=== PATIENT | female | born 1930 | race Caucasian/White ===

== ENCOUNTER 2018-06-05 22:10 | Inpatient (IN) ==
[2018-06-05] MEDS ORDERED: Vancomycin Inj 1,000 MG in Sodium Chlor 0.9% Inj 250 ML IV.SIG STA (22:16)
[2018-06-05] MEDS ORDERED: Acetaminophen 325 MG Tablet PO ONE (22:16)
[2018-06-05] MEDS ORDERED: Azithromycin Inj 500 MG in Sodium Chlor 0.9% Inj 250 ML IV.SIG STA (22:16)
[2018-06-05] MEDS ORDERED: Piperacil/Tazo 4.5 GM Premix 4.5 GM/100 ML BAG IV.SIG STA (22:16)
[2018-06-05] MEDS ORDERED: Sod Chloride 0.9% Inj 800 ML IV.SIG SCH (22:30)
[2018-06-05] MEDS: Sod Chloride 0.9% Inj 1,000 ML IV.SIG SCH (22:32)
--- NOTE | 2018-06-05 22:37 | XR ---
EXAM DATE: 06/05/2018 10:17 PM EDT AGE/SEX: 87 years / Female INDICATIONS: Fever. Stemi alert. CLINICAL DATA: This is the patient's initial encounter. Patient reports that signs and symptoms have been present for 1 day and indicates a pain score of Nonresponsive. MEDICAL/SURGICAL HISTORY: Non-responsive. Non-responsive. COMPARISON: No prior exams available for comparison. FINDINGS: There is left basilar airspace disease and probable small left effusion and trace right pleural fluid . Stent overlies lower chest, presumably within the esophagus. No prior study for comparison. No pneu mothorax. Mild scoliosis. CONCLUSION: Left basilar airspace disease with pleural fluid. Presumed esophageal stent. Tortuous aorta. Trace ri ght pleural fluid. Electronically signed by: Eyad Mike MD 06/05/2018 10:36 PM EDT
--- NOTE | 2018-06-05 22:41 | ED ---
HPI General Chief Complaint: Respiratory Symptoms Stated Complaint: stemi alert/evac Time Seen by Provider: 06/05/18 22:16 Source: patient and EMS Mode of arrival: EMS Limitations: no limitations History of Present Illness Patient is an 87-year-old female who presents from the assisted with complaint of shortness of breath, cough, nausea. EMS reports that her pulse ox was in the 80s and she has since received 1 DuoNeb and 1 nebulized albuterol after which she had improving breath sounds and pulse ox. They gave her 125 mg Solu-Medrol. They obtained a 12-lead EKG and were concerned about the inferior leads and V4 and called in a STEMI alert. Patient denies chest pain at this time and is mostly complaining of shortness of breath and her cough. MD Complaint: Reports shortness of breath and cough Onset (ago): unknown Context: Reports recent illness Severity: moderate Consistency/Duration: constant Relieving factors: oxygen and bronchodilators Exacerbating factors: nothing Associated symptoms: Reports cough Treatment prior to arrival: Reports oxygen and bronchodilator Related Data Home Medications Medication Instructions Recorded Confirmed amiodarone 200 mg PO DAILY 06/05/18 06/05/18 aspirin [Aspir-81] 81 mg PO DAILY 06/05/18 06/05/18 calcium carbonate-vitamin D3 1 tab PO DAILY 06/05/18 06/05/18 [Calcium 500 + D] ipratropium-albuterol 3 ml INHALATION Q6-8H PRN 06/05/18 06/05/18 levothyroxine 88 mcg PO DAILY 06/05/18 06/05/18 melatonin 3 mg PO HS PRN 06/05/18 06/05/18 methenamine mandelate 1 g PO BID 06/05/18 06/05/18 metoprolol succinate 25 mg PO DAILY 06/05/18 06/05/18 montelukast 10 mg PO QPM 06/05/18 06/05/18 morphine 5 mg INHALATION Q4-6H PRN 06/05/18 06/05/18 ondansetron 4 mg PO Q6-8H PRN 06/05/18 06/05/18 phenazopyridine 100 mg PO TID PRN 06/05/18 06/05/18 pravastatin 20 mg PO HS 06/05/18 06/05/18 ranitidine HCl [Acid Jewelry Facer 75 mg PO BID PRN 06/05/18 06/05/18 (ranitidine)] tamsulosin 0.4 mg PO BID 06/05/18 06/05/18 Allergies Allergy/AdvReac Type Severity Reaction Status Date / Time alendronate sodium Allergy Edema, Verified 06/05/18 22:56 Generalized naproxen Allergy Edema, Verified 06/05/18 22:56 Generalized Review of Systems ROS: all other systems reviewed are negative [facility] Medical History Medical History Afib (Acute) Asthma (Acute) COPD (chronic obstructive pulmonary disease) (Acute) Colitis (Acute) Cystitis (Acute) GERD (gastroesophageal reflux disease) (Acute) HTN (hypertension) (Acute) Heart failure (Acute) Hyperlipemia (Acute) Hypocalcemia (Acute) Hypothyroid (Acute) Insomnia (Acute) UTI (urinary tract infection) (Acute) Urine retention (Acute) Surgical History Surgical History Hx of appendectomy (Acute) Hx of heart surgery (Acute) Social History Social History Substance History: No History of Abuse Smoking Status: Unknown if ever smoked How Often Do You Have a Drink Containing Alcohol: Never Recent Travel in [facility] within the Last 8 Weeks: No Recent Out of Country Travel within the Last 8 Weeks: No Exam Narrative Exam Narrative: GENERAL: Ill-appearing female SKIN: Focused skin assessment warm/dry. HEAD: Atraumatic. Normocephalic. EYES: Pupils equal and round. No scleral icterus. No injection or drainage. ENT: No nasal bleeding or discharge. Mucous membranes pink and moist. NECK: Trachea midline. No JVD. CARDIOVASCULAR: Tachycardic but regular. No murmur appreciated. Intact and equal peripheral pulses. Normal cap refill. RESPIRATORY: Tachypneic. Rhonchi present throughout but worse in the left side of the chest. GASTROINTESTINAL: Abdomen soft, non-tender, nondistended. Hepatic and splenic margins not palpable. MUSCULOSKELETAL: No obvious deformities. No clubbing. No cyanosis. No edema. NEUROLOGICAL: Awake and alert. No obvious cranial nerve deficits. Motor grossly within normal limits. Normal speech. PSYCHIATRIC: Appropriate mood and affect; insight and judgment normal. Course Reevaluation(s) Reevaluation #1: Patient appears much better, more comfortable and is no longer tachycardic. Time: 23:22 Initial Documented Vital Signs Pulse Oximetry 97 06/05/18 22:17 Last Documented Vital Signs Temperature 101.2 F H 06/05/18 22:21 Pulse Rate 107 H 06/05/18 22:53 Respiratory Rate 48 H 06/05/18 22:53 Blood Pressure 155/65 H 06/05/18 22:53 Pulse Oximetry 97 06/05/18 22:53 Medical Decision Making MDM Narrative Medical decision making narrative: Patient is an 87-year-old female who presents with complaint of shortness of breath. She is tachycardic, febrile, tachypneic on arrival and sepsis protocol was initiated. EKG shows NSR, no ST elevation or depression, and no arrhythmias. No significant T-wave inversions. Does not show a STEMI alert. Chest x-ray is concerning for pneumonia. She has been given antibiotics empirically. Labs consistent with sepsis but with a normal lactate. She will be admitted for further evaluation and management. Medical Screen Exam Complete: Yes Emergency Medical Condition: Yes Differential Diagnosis Differential Diagnosis: Differential diagnosis includes but is not limited to sepsis, pneumonia, pneumothorax, COPD exacerbation, DKA. Medical Records Medical records reviewed: Yes I reviewed the patient's medical records. Lab Data Result diagrams: 06/05/18 22:25 06/05/18 22:25 Lab Results 06/05/18 06/05/18 06/05/18 Range/Units 22:25 22:25 22:25 WBC 22.7 H (4.0-11.0) th/mm3 RBC 3.37 L (4.00-5.30) mil/mm3 Hgb 10.8 L (11.6-15.3) gm/dL Hct 32.9 L (35.0-46.0) % MCV 97.7 (80.0-100.0) fL MCH 32.1 (27.0-34.0) pg MCHC 32.8 (32.0-36.0) % RDW 17.0 (11.6-17.2) % Plt Count 319 (150-450) th/mm3 MPV 8.7 (7.0-11.0) fL Prelim Diff (Auto) Slide review pending Neut % (Auto) 69.2 (16.0-70.0) % Lymph % (Auto) 23.5 (9.0-44.0) % [place] % (Auto) 5.8 (0.0-8.0) % Eos % (Auto) 0.6 (0.0-4.0) % Baso % (Auto) 0.9 (0.0-2.0) % Neut # (Auto) 15.7 H (1.8-7.7) th/mm3 Lymph # (Auto) 5.3 H (1.0-4.8) th/mm3 [place] # (Auto) 1.3 H (0.0-0.9) th/mm3 Eos # (Auto) 0.1 (0.0-0.4) th/mm3 Baso # (Auto) 0.2 (0.0-0.2) th/mm3 WBC Differential Manual diff final Seg Neuts % (Manual) 67 (16-70) % Band Neuts % (Manual) 4 (0-6) % Lymphocytes % (Manual) 25 (9-44) % Monocytes % (Manual) 4 (0-8) % Abs Neuts (Manual) 16.1 H (1.8-7.7) th/mm3 Differential Comment . Toxic Vacuolation Present H (None) Platelet Estimate Normal (Normal) Platelet Morphology Normal (Normal) Sodium 132 L (136-145) meq/L Potassium 4.2 (3.5-5.1) meq/L Chloride 94 L (98-107) meq/L Carbon Dioxide 30.7 (21.0-32.0) meq/L Anion Gap 7 (5-15) meq/L BUN 16 (7-18) mg/dL Creatinine 0.64 (0.50-1.00) mg/dL Estimated GFR 88 L (>89) mL/min Random Glucose 129 H (74-106) mg/dL Lactic Acid 1.8 (0.4-2.0) mmol/L Calcium 8.3 L (8.5-10.1) mg/dL Magnesium 1.8 (1.5-2.5) mg/dL Total Bilirubin 0.7 (0.2-1.0) mg/dL AST 31 (15-37) U/L ALT 53 (10-53) U/L Alkaline Phosphatase 114 (45-117) U/L Troponin I Less than 0.02 L (0.02-0.05) ng/mL Total Protein 7.1 (6.4-8.2) g/dL Albumin 3.0 L (3.4-5.0) g/dL Urine Color (Yellw/Straw) Urine Clarity (Clear) Urine pH (5.0-8.5) Ur Specific [place] (1.002-1.035) Urine Protein (Neg-Trace) mg/dL Urine Glucose (UA) (Negative) mg/dL Urine Ketones (Negative) mg/dL Urine Occult Blood (Negative) Urine Nitrate (Negative) Urine Bilirubin (Negative) Urine Urobilinogen (Less than 2) mg/dL Ur Leukocyte Esterase (Negative) Urine RBC (0-3) /hpf Urine WBC (0-5) /hpf Urine WBC Clumps (None) Ur Squamous Epith Cells (0-5) /hpf Ur Renal Epithelial Cell (None) /hpf Calcium Oxalate Crystal (None) /hpf Amorphous Sediment (None) /hpf Urine Bacteria (None) /hpf Hyaline Casts (0-3) /lpf Urine Mucus (Occasional) /lpf Micro UA Comment Ur Microscopic Review Urine Culture Comments 06/05/18 Range/Units 22:25 WBC (4.0-11.0) th/mm3 RBC (4.00-5.30) mil/mm3 Hgb (11.6-15.3) gm/dL Hct (35.0-46.0) % MCV (80.0-100.0) fL MCH (27.0-34.0) pg MCHC (32.0-36.0) % RDW (11.6-17.2) % Plt Count (150-450) th/mm3 MPV (7.0-11.0) fL Prelim Diff (Auto) Neut % (Auto) (16.0-70.0) % Lymph % (Auto) (9.0-44.0) % [place] % (Auto) (0.0-8.0) % Eos % (Auto) (0.0-4.0) % Baso % (Auto) (0.0-2.0) % Neut # (Auto) (1.8-7.7) th/mm3 Lymph # (Auto) (1.0-4.8) th/mm3 [place] # (Auto) (0.0-0.9) th/mm3 Eos # (Auto) (0.0-0.4) th/mm3 Baso # (Auto) (0.0-0.2) th/mm3 WBC Differential Seg Neuts % (Manual) (16-70) % Band Neuts % (Manual) (0-6) % Lymphocytes % (Manual) (9-44) % Monocytes % (Manual) (0-8) % Abs Neuts (Manual) (1.8-7.7) th/mm3 Differential Comment Toxic Vacuolation (None) Platelet Estimate (Normal) Platelet Morphology (Normal) Sodium (136-145) meq/L Potassium (3.5-5.1) meq/L Chloride (98-107) meq/L Carbon Dioxide (21.0-32.0) meq/L Anion Gap (5-15) meq/L BUN (7-18) mg/dL Creatinine (0.50-1.00) mg/dL Estimated GFR (>89) mL/min Random Glucose (74-106) mg/dL Lactic Acid (0.4-2.0) mmol/L Calcium (8.5-10.1) mg/dL Magnesium (1.5-2.5) mg/dL Total Bilirubin (0.2-1.0) mg/dL AST (15-37) U/L ALT (10-53) U/L Alkaline Phosphatase (45-117) U/L Troponin I (0.02-0.05) ng/mL Total Protein (6.4-8.2) g/dL Albumin (3.4-5.0) g/dL Urine Color Yellow (Yellw/Straw) Urine Clarity Cloudy H (Clear) Urine pH 7.0 (5.0-8.5) Ur Specific [place] 1.009 (1.002-1.035) Urine Protein Negative (Neg-Trace) mg/dL Urine Glucose (UA) Negative (Negative) mg/dL Urine Ketones Negative (Negative) mg/dL Urine Occult Blood Moderate H (Negative) Urine Nitrate Negative (Negative) Urine Bilirubin Negative (Negative) Urine Urobilinogen Less than 2 (Less than 2) mg/dL Ur Leukocyte Esterase Large H (Negative) Urine RBC 32 H (0-3) /hpf Urine WBC 77 H (0-5) /hpf Urine WBC Clumps Few H (None) Ur Squamous Epith Cells <1 (0-5) /hpf Ur Renal Epithelial Cell 1 (None) /hpf Calcium Oxalate Crystal Rare H (None) /hpf Amorphous Sediment Rare H (None) /hpf Urine Bacteria Occasional H (None) /hpf Hyaline Casts 1 (0-3) /lpf Urine Mucus Few H (Occasional) /lpf Micro UA Comment Culture indicated Ur Microscopic Review Not Reportable Urine Culture Comments Culture indicated Imaging Data Attestation: I personally reviewed and interpreted this imaging study as follows : My impression: Left-sided consolidation. Radiologist's impression: Chest X-Ray 06/05/18 22:17 CONCLUSION: Left basilar airspace disease with pleural fluid. Presumed esophageal stent. Tortuous aorta. Trace right pleural fluid. ECG Data Attestation: I personally reviewed and interpreted this ECG as follows: (Sinus tachycardia at a rate of 120 bpm. There is marketed intraventricular conduction delay with T wave inversions in leads I, aVL, V5, V6. This is unchanged from the prehospital EKG.) Discharge Plan Discharge Disposition Patient Disposition: 30 Still Patient Discharge Condition Condition: Serious Discharge Details Diagnosis: Pneumonia, Sepsis Physicians Team ED Provider: Briseyda Chacko Primary Care Provider: Georgi Wayne Rxs /Orders / Referrals /Forms Prescriptions: No Action amiodarone 200 mg Tablet 200 mg PO DAILY RF: 0 melatonin 3 mg Tablet 3 mg PO HS PRN (Reason: Insomnia) RF: 0 aspirin [Aspir-81] 81 mg Tablet,Delayed Release (Dr/Ec) 81 mg PO DAILY RF: 0 levothyroxine 88 mcg Tablet 88 mcg PO DAILY RF: 0 montelukast 10 mg Tablet 10 mg PO QPM RF: 0 pravastatin 20 mg Tablet 20 mg PO HS RF: 0 calcium carbonate-vitamin D3 [Calcium 500 + D] 500 mg(1,250mg) -200 unit Tablet 1 tab PO DAILY RF: 0 metoprolol succinate 25 mg Cap,Sprinkle,Er 24hr Dose Pack 25 mg PO DAILY RF: 0 ipratropium-albuterol 0.5 mg-3 mg(2.5 mg base)/3 mL Solution For Nebulization 3 ml INHALATION Q6-8H PRN (Reason: Respiratory Distress) RF: 0 tamsulosin 0.4 mg Capsule 0.4 mg PO BID RF: 0 ranitidine HCl [Acid Jewelry Facer (ranitidine)] 75 mg Tablet 75 mg PO BID PRN (Reason: Abdominal Distention) RF: 0 phenazopyridine 100 mg Tablet 100 mg PO TID PRN (Reason: Pain) RF: 0 methenamine mandelate 1 gram Tablet 1 g PO BID RF: 0 morphine 5 mg/mL Solution 5 mg INHALATION Q4-6H PRN (Reason: Pain) RF: 0 ondansetron 4 mg Tablet,Disintegrating 4 mg PO Q6-8H PRN (Reason: Nausea) RF: 0 Status ED Status: With Doctor
[2018-06-05 22:43] LABS: Baso # (Auto) 0.2 th/mm3 (0.0-0.2); Baso % (Auto) 0.9 % (0.0-2.0); Eos # (Auto) 0.1 th/mm3 (0.0-0.4); Eos % (Auto) 0.6 % (0.0-4.0); Hematocrit 32.9 % (35.0-46.0); Hemoglobin 10.8 gm/dL (11.6-15.3); Lymph # (Auto) 5.3 th/mm3 (1.0-4.8); Lymph % (Auto) 23.5 % (9.0-44.0); Mean Corpuscular HGB Conc 32.8 % (32.0-36.0); Mean Corpuscular Hemoglobin 32.1 pg (27.0-34.0); Mean Corpuscular Volume 97.7 fL (80.0-100.0); Mean Platelet Volume 8.7 fL (7.0-11.0); Mono # (Auto) 1.3 th/mm3 (0.0-0.9); Mono % (Auto) 5.8 % (0.0-8.0); Neut # (Auto) 15.7 th/mm3 (1.8-7.7); Neut % (Auto) 69.2 % (16.0-70.0); Platelet Count 319 th/mm3 (150-450); Red Blood Count 3.37 mil/mm3 (4.00-5.30); White Blood Count 22.7 th/mm3 (4.0-11.0)
[2018-06-05 22:51] LABS: Amorphous Sediment,Urine Rare /hpf; Bacteria,Urine Occasional /hpf; Bilirubin,Urine Negative (Negative); Calcium Oxalate Crystals,Urine Rare /hpf; Clarity,Urine Cloudy (Clear); Color,Urine Yellow (Yellw/Straw); Glucose,Urine (UA) Negative (Negative); Hyaline Casts,Urine 1 /lpf (0-3); Leukocyte Esterase,Urine Large (Negative); Mucus,Urine Few /lpf (Occasional); Nitrite,Urine Negative (Negative); Renal Epithelial Cells,Urine 1 /hpf; Specific Gravity,Urine 1.009 (1.002-1.035); Squamous Epithelial Cell,Urine <1 /hpf (0-5)
[2018-06-05 22:58] LABS: Alanine Aminotransferase 53 U/L (10-53)
[2018-06-05 23:02] LABS: Alkaline Phosphatase 114 U/L (45-117); Total Protein 7.1 g/dL (6.4-8.2)
[2018-06-05 23:06] LABS: Anion Gap 7 meq/L (5-15); Aspartate Aminotransferase 31 U/L (15-37); Blood Urea Nitrogen 16 mg/dL (7-18); Calcium 8.3 mg/dL (8.5-10.1); Carbon Dioxide 30.7 meq/L (21.0-32.0); Chloride 94 meq/L (98-107); Glomerular Filtration Rate 88 mL/min (>89); Glucose,Random 129 mg/dL (74-106); Magnesium 1.8 mg/dL (1.5-2.5); Potassium 4.2 meq/L (3.5-5.1); Sodium 132 meq/L (136-145)
[2018-06-05 23:12] LABS: Lymphocytes 25 % (9-44); Monocytes 4 % (0-8); Toxic Vacuolation Present
[2018-06-05 23:13] LABS: Platelet Estimate Normal (Normal); Platelet Morphology Normal (Normal)
[2018-06-06] MEDS ORDERED: Vancomycin Consult Pharmacy OTHER PRN (03:34)
[2018-06-06] MEDS ORDERED: Acetaminophen 325 MG Tablet PO PRN (03:36)
[2018-06-06] MEDS ORDERED: Bisacodyl 10 MG Supp RECTAL PRN (03:36)
[2018-06-06] MEDS ORDERED: Melatonin 5 MG Tablet PO PRN (03:45)
--- NOTE | 2018-06-06 03:55 | P.HP ---
History of Present Illness Service: [facility] Primary Care Physician: Georgi Wayne MD History of Present Illness: 87-year-old female with past medical history significant for atrial fibrillation (anticoagulated on aspirin), COPD, congestive heart failure, hypertension, hyperlipidemia and hypothyroidism since to the emergency department for the evaluation of shortness of breath, cough and nausea. The patient was brought via [facility] from her group home facility and per report her oxygen saturation was in the 80s. She was given a DuoNeb and IV Solu- Medrol. STEMI alert was called in the field however EKG showed normal sinus rhythm without ST segment elevation or depression in the emergency department. The patient denies chest pain. No abdominal pain. No emesis or diarrhea. Fevers/chills. No lateralizing signs/symptoms. Inpatient Certification: I certify that the inpatient services were ordered in accordance with Medicare regulations governing the order. This includes certification that hospital inpatient services are reasonable and necessary and in the case of services not specified as inpatient-only under 42 CFR 419.22(n), that they are appropriately provided as inpatient services in accordance to with the 2-midnight benchmark under 43 CFR 412.3(e) Estimated Total Length of Stay (Days): 2 Plans for Post Hospital Care: Not yet determined Review of Systems All other systems reviewed negative except as stated in HPI [facility] - History History Provided By: Patient, Medical Record - Medical History Medical History: Medical History (Last Reviewed 06/06/18 @ 03:47 by Jessica Leiva MD) Afib Asthma COPD (chronic obstructive pulmonary disease) Colitis Cystitis GERD (gastroesophageal reflux disease) HTN (hypertension) Heart failure Hyperlipemia Hypocalcemia Hypothyroid Insomnia UTI (urinary tract infection) Urine retention - Surgical History Surgical History: Surgical History (Last Reviewed 06/06/18 @ 03:47 by Jessica Leiva MD) Hx of appendectomy Hx of heart surgery - Family History Family History: Family History (Last Updated 06/06/18 @ 03:47 by Jessica Leiva MD) Other Family history unknown - Tobacco History Smoking Status: Unknown if ever smoked - Alcohol History How Often Do You Have a Drink Containing Alcohol: Never - Substance Use History Substance History: No History of Abuse - Travel History Recent Travel in the [place] Within the Last 8 Weeks: No Recent Travel Out of the Country Within the Last 8 Weeks: No - Immunization History Tetanus Immunization: Unsure Medications and Allergies Active Medications: Active Medications Acetaminophen (Tylenol) 650 mg PO Q4H PRN PRN Reason: Temp > 100.4 Al Hydroxide/Mg Hydroxide (Milk Of Magnesia Liq) 30 ml PO Q12H PRN PRN Reason: Mild Constipation Albuterol (Duoneb Neb (Prn)) 1 ampul NEB Q4HR NEB PRN PRN Reason: SOB/Wheezing Amiodarone HCl (Cordarone) 200 mg PO DAILY TAZ Aspirin (Ecotrin) 81 mg PO DAILY TAZ Bisacodyl (Dulcolax Supp) 10 mg RECTAL DAILY PRN PRN Reason: SEVERE CONSITIPATION Heparin Sodium (Porcine) (Heparin Inj) 5,000 units SQ Q12H TAZ Sodium Chloride (Ns Inj) 1,000 mls @ 0 mls/hr IV.SIG .Q0M TAZ Last Infusion: 06/05/18 23:20 Dose: Infused Sodium Chloride (Ns Inj) 800 mls @ 0 mls/hr IV.SIG .Q0M TAZ Last Infusion: 06/06/18 01:40 Dose: Infused Azithromycin 500 mg/ Sodium (Chloride) 250 mls @ 250 mls/hr IV.SIG Q24H TAZ Sodium Chloride (Ns Inj) 1,000 mls @ 70 mls/hr IV.CONT .[id number] TAZ Piperacillin/Tazobactam/Dextrose (Zosyn 4.5 Gm Premix) 4.5 gm in 100 mls @ 200 mls/hr IV.SIG Q6H TAZ Lactulose (Lactulose Liq) 30 ml PO DAILY PRN PRN Reason: SEVERE CONSITIPATION Levothyroxine Sodium (Synthroid) 88 mcg PO DAILY TAZ Non-Formulary Medication (Melatonin [Melatonin]) 3 mg PO HS PRN PRN Reason: Insomnia Non-Formulary Medication (Methenamine Mandelate [Methenamine Mandelate]) 1 g PO BID TAZ Non-Formulary Medication (Metoprolol Succinate [Metoprolol Succinate]) 25 mg PO DAILY TAZ Ondansetron HCl (Zofran Inj) 4 mg IV.PUSH Q6H PRN PRN Reason: NAUSEA OR VOMITING Pharmacy Profile Note (Vancomycin Consult Pharmacy) 1 each OTHER UNSCH PRN PRN Reason: Pharmacy to dose Pravastatin Sodium (Pravachol) 20 mg PO HS TAZ Senna/Docusate Sodium (Edita-Colace) 1 tab PO BID [facility] Sennosides (Senokot) 17.2 mg PO Q12H PRN PRN Reason: Moderate Constipation Tamsulosin HCl (Flomax) 0.4 mg PO BID [facility] Allergies Allergy/AdvReac Type Severity Reaction Status Date / Time alendronate sodium Allergy Edema, Verified 06/05/18 22:56 Generalized naproxen Allergy Edema, Verified 06/05/18 22:56 Generalized Home Medications Medication Instructions Recorded Confirmed Type amiodarone 200 mg PO DAILY 06/05/18 06/05/18 History aspirin [Aspir-81] 81 mg PO DAILY 06/05/18 06/05/18 History calcium carbonate-vitamin D3 1 tab PO DAILY 06/05/18 06/05/18 History [Calcium 500 + D] ipratropium-albuterol 3 ml INHALATION Q6-8H PRN 06/05/18 06/05/18 History levothyroxine 88 mcg PO DAILY 06/05/18 06/05/18 History melatonin 3 mg PO HS PRN 06/05/18 06/05/18 History methenamine mandelate 1 g PO BID 06/05/18 06/05/18 History metoprolol succinate 25 mg PO DAILY 06/05/18 06/05/18 History montelukast 10 mg PO QPM 06/05/18 06/05/18 History morphine 5 mg INHALATION Q4-6H PRN 06/05/18 06/05/18 History ondansetron 4 mg PO Q6-8H PRN 06/05/18 06/05/18 History phenazopyridine 100 mg PO TID PRN 06/05/18 06/05/18 History pravastatin 20 mg PO HS 06/05/18 06/05/18 History ranitidine HCl [Acid Inverform Machine Operator 75 mg PO BID PRN 06/05/18 06/05/18 History (ranitidine)] tamsulosin 0.4 mg PO BID 06/05/18 06/05/18 History Exam Vital signs: Vital Signs 06/05/18 22:17 06/05/18 22:21 06/05/18 22:53 Temperature 101.2 F H Pulse Rate 118 H 107 H Respiratory Rate 50 H 48 H Blood Pressure 185/93 H 155/65 H Pulse Oximetry 97 96 97 06/06/18 00:31 10/19/18 01:41 06/06/18 02:28 Temperature Pulse Rate 81 78 77 Respiratory Rate 30 H 24 26 H Blood Pressure 94/53 L 99/55 L 104/53 L Pulse Oximetry 97 97 97 Intake & Output 06/05/18 06/05/18 06/06/18 06:59 18:59 06:59 Intake Total 2400 / 2400 Balance 2400 / 2400 Weight 45 kg Intake: IV 2400 / 2400 Azithromycin Inj 500 MG In NS 250 / 250 Inj 250 ML @ 250 mls/hr IV.SIG STAT STA Rx#:[id number] Zosyn 4.5 GM Premix 4.5 gm In 100 / 100 100 ml @ 200 mls/hr IV.SIG STAT STA Rx#:[id number] NS Inj 800 ML @ Wide Open IV. 1800 / 1800 SIG .Q0M TAZ Rx#:[id number] Vancomycin Inj 1,000 MG In NS 250 / 250 Inj 250 ML @ 250 mls/hr IV.SIG STAT STA Rx#:[id number] Narrative: Gen.: No acute distress Head: Normocephalic. Atraumatic. EENT: Pupils equal round and reactive to light. Nose without drainage. Airway intact. Throat without injection. Cardiovascular: Tachycardic. Regular rhythm. No murmurs, rubs or gallops. Respiratory: Tachypneic with bilateral rhonchi. Abdomen: Soft, nontender, nondistended. No peritoneal signs. Musculoskeletal: No gross deformities. No edema. Skin: No obvious rashes or erythema. Neuro: Sensory and motor grossly intact. Cranial nerves II through XII grossly intact. Results - Labs CBC & Chem 7: 06/05/18 22:25 06/05/18 22:25 Labs: Laboratory Results - last 24 hr 06/05/18 06/05/18 06/05/18 22:25 22:25 22:25 WBC 22.7 H RBC 3.37 L Hgb 10.8 L Hct 32.9 L MCV 97.7 MCH 32.1 MCHC 32.8 RDW 17.0 Plt Count 319 MPV 8.7 Prelim Diff (Auto) Slide review pending Neut % (Auto) 69.2 Lymph % (Auto) 23.5 [place] % (Auto) 5.8 Eos % (Auto) 0.6 Baso % (Auto) 0.9 Neut # (Auto) 15.7 H Lymph # (Auto) 5.3 H [place] # (Auto) 1.3 H Eos # (Auto) 0.1 Baso # (Auto) 0.2 WBC Differential Manual diff final Seg Neuts % (Manual) 67 Band Neuts % (Manual) 4 Lymphocytes % (Manual) 25 Monocytes % (Manual) 4 Abs Neuts (Manual) 16.1 H Differential Comment . Toxic Vacuolation Present H Platelet Estimate Normal Platelet Morphology Normal Sodium 132 L Potassium 4.2 Chloride 94 L Carbon Dioxide 30.7 Anion Gap 7 BUN 16 Creatinine 0.64 Estimated GFR 88 L Random Glucose 129 H Lactic Acid 1.8 Calcium 8.3 L Magnesium 1.8 Total Bilirubin 0.7 AST 31 ALT 53 Alkaline Phosphatase 114 Troponin I Less than 0.02 L Total Protein 7.1 Albumin 3.0 L Urine Color Urine Clarity Urine pH Ur Specific [place] Urine Protein Urine Glucose (UA) Urine Ketones Urine Occult Blood Urine Nitrate Urine Bilirubin Urine Urobilinogen Ur Leukocyte Esterase Urine RBC Urine WBC Urine WBC Clumps Ur Squamous Epith Cells Ur Renal Epithelial Cell Calcium Oxalate Crystal Amorphous Sediment Urine Bacteria Hyaline Casts Urine Mucus Micro UA Comment Ur Microscopic Review Urine Culture Comments 06/05/18 22:25 WBC RBC Hgb Hct MCV MCH MCHC RDW Plt Count MPV Prelim Diff (Auto) Neut % (Auto) Lymph % (Auto) [place] % (Auto) Eos % (Auto) Baso % (Auto) Neut # (Auto) Lymph # (Auto) [place] # (Auto) Eos # (Auto) Baso # (Auto) WBC Differential Seg Neuts % (Manual) Band Neuts % (Manual) Lymphocytes % (Manual) Monocytes % (Manual) Abs Neuts (Manual) Differential Comment Toxic Vacuolation Platelet Estimate Platelet Morphology Sodium Potassium Chloride Carbon Dioxide Anion Gap BUN Creatinine Estimated GFR Random Glucose Lactic Acid Calcium Magnesium Total Bilirubin AST ALT Alkaline Phosphatase Troponin I Total Protein Albumin Urine Color Yellow Urine Clarity Cloudy H Urine pH 7.0 Ur Specific [place] 1.009 Urine Protein Negative Urine Glucose (UA) Negative Urine Ketones Negative Urine Occult Blood Moderate H Urine Nitrate Negative Urine Bilirubin Negative Urine Urobilinogen Less than 2 Ur Leukocyte Esterase Large H Urine RBC 32 H Urine WBC 77 H Urine WBC Clumps Few H Ur Squamous Epith Cells <1 Ur Renal Epithelial Cell 1 Calcium Oxalate Crystal Rare H Amorphous Sediment Rare H Urine Bacteria Occasional H Hyaline Casts 1 Urine Mucus Few H Micro UA Comment Culture indicated Ur Microscopic Review Not Reportable Urine Culture Comments Culture indicated - Imaging Impressions Chest X-Ray 06/05/18 22:17 CONCLUSION: Left basilar airspace disease with pleural fluid. Presumed esophageal stent. Tortuous aorta. Trace right pleural fluid. Caprini VTE Risk Assessment Caprini VTE Risk Assessment: Moderate/High Risk (score >= 2) Caprini Risk Assessment Model: Point Value = 1 Point Value = 2 Point Value = 3 Point Value = 5 Age 41-60 Minor surgery BMI > 25 kg/m2 Swollen legs Varicose veins or History of unexplained or recurrent spontaneous Oral contraceptives or hormone replacement Sepsis (< 1 month) Serious lung disease, including pneumonia (< 1 month) Abnormal pulmonary function Acute myocardial infarction Congestive heart failure (< 1 month) History of inflammatory bowel disease Medical patient at bed rest Age 61-74 Arthroscopic surgery Major open surgery (> 45 min) Laparoscopic surgery (> 45 min) Malignancy Confined to bed (> 72 hours) Immobilizing plaster cast Central venous access Age >= 75 History of VTE Family history of VTE Factor V Leiden Prothrombin [id number] Lupus anticoagulant Anticardiolipin antibodies Elevated serum homocysteine Heparin-induced thrombocytopenia Other congenital or acquired thrombophilia Stroke (< 1 month) Elective arthroplasty Hip, pelvis, or leg fracture Acute spinal cord injury (< 1 month) Prophylaxis Regimen: Total Risk Factor Score Risk Level Prophylaxis Regimen 0-1 Low Early ambulation 2 Moderate Order ONE of the following: *Sequential Compression Device (SCD) *Heparin 5000 units SQ BID 3-4 Higher Order ONE of the following medications: *Heparin 5000 units SQ TID *Enoxaparin/Lovenox 40 mg SQ daily (WT < 150 kg, CrCl > 30 mL/min) *Enoxaparin/Lovenox 30 mg SQ daily (WT < 150 kg, CrCl > 10-29 mL/min) *Enoxaparin/Lovenox 30 mg SQ BID (WT < 150 kg, CrCl > 30 mL/min) AND/OR *Sequential Compression Device (SCD) 5 or more Highest Order ONE of the following medications: *Heparin 5000 units SQ TID (Preferred with Epidurals) *Enoxaparin/Lovenox 40 mg SQ daily (WT < 150 kg, CrCl > 30 mL/min) *Enoxaparin/Lovenox 30 mg SQ daily (WT < 150 kg, CrCl > 10-29 mL/min) *Enoxaparin/Lovenox 30 mg SQ BID (WT < 150 kg, CrCl > 30 mL/min) AND *Sequential Compression Device (SCD) Assessment and Plan - Plan Assessment/plan: 1. Pneumonia/sepsis/COPD Patient with leukocytosis, tachycardia and hypoxia Chest x-ray significant for left basilar airspace disease with pleural fluid, personally reviewed Vancomycin/Zosyn/azithromycin Blood cultures pending Legionella/pneumococcal urinary antigens pending IV steroids Duo nebs 2. Urinary tract infection UA consistent with UTI Urine culture pending Antibiotics as above 3. Atrial fibrillation Continue home amiodarone and metoprolol Not on systemic anticoagulation 4. Hypertension/hyperlipidemia/hypothyroidism Continue home medications FEN Heart healthy diet Electrolytes: Monitor and replete as needed NS at 70 cc/hour Heparin
[2018-06-06] MEDS: Sod Chloride 0.9% Inj 1,000 ML IV.CONT SCH ×2 (04:17→21:24)
[2018-06-06] MEDS: Piperacil/Tazo 4.5 GM Premix 4.5 GM/100 ML BAG IV.SIG SCH ×2 (04:17→11:21)
[2018-06-06] MEDS: MethylPREDNISolone Sod Succinate Inj 40 MG/ML Vial IV.PUSH SCH ×3 (05:48→21:20)
[2018-06-06] MEDS: Levothyroxine 88 MCG Tablet PO SCH (05:48)
[2018-06-06] MEDS: Heparin - SQ 10,000 UNITS/ML Vial SQ SCH ×2 (05:48→18:02)
[2018-06-06] MEDS ORDERED: Methenamine Mandelate 500 MG Tablet PO SCH (09:00)
[2018-06-06] MEDS: Amiodarone 200 MG Tablet PO SCH (11:22)
[2018-06-06] MEDS: Senna/Docusate Sodium 8.6/50 MG Tablet PO SCH ×2 (11:23→21:21)
--- NOTE | 2018-06-06 17:43 | ECG ---
Date Performed: 06/05/2018 Time Performed: 22:13:19 PTAGE: 87 years EKG: SINUS TACHYCARDIA MARKED LEFT AXIS DEVIATION INTRAVENTRICULAR CONDUCTION DELAY POOR INITIAL ANTERIOR FORCESA IN V1 AND V2, WHICH MAY BE NORMAL VARIANT, CANNOT RULE OUT SEPTAL VA T WAVE CHANGES PROBABLY DUE TO THE CONDUCTION DEFECT ABNORMAL ECG NO PREVIOUS TRACING DOCTOR: Anam Andrews Interpretating Date/Time 06/06/2018 17:41:32
[2018-06-06] MEDS: Lactobacillus Acidophilus/L. Spores Tablet PO SCH (18:02)
[2018-06-06] MEDS: Sod Chloride 0.9% Inj 1,000 ML IV.SIG SCH (18:03)
[2018-06-06] MEDS ORDERED: Diatrizoate Meglum/Diatrizoate Sod Liq 9 ML UDC PO ONE ×3 (18:44→19:45)
[2018-06-06] MEDS ORDERED: Azithromycin Inj 500 MG in Sodium Chlor 0.9% Inj 250 ML IV.SIG SCH (23:00)
[2018-06-07] MEDS ORDERED: Vancomycin Inj 1,000 MG in Sodium Chlor 0.9% Inj 250 ML IV.SIG SCH ×2
[2018-06-07] MEDS: Azithromycin 250 MG Tablet PO SCH ×2 (00:19→22:09)
--- NOTE | 2018-06-07 01:35 | CT ---
EXAM DATE: 06/07/2018 12:59 AM EDT AGE/SEX: 87 years / Female INDICATIONS: Abdominal pain. CLINICAL DATA: This is the patient's initial encounter. Patient reports that signs and symptoms have been present for 2 days and indicates a pain score of 7/10. MEDICAL/SURGICAL HISTORY: Hypertension. Congestive heart failure. Asthma. Colitis, Cystitis, GERD, Hypothyroidism Appendectomy. ORAL CONTRAST: Partial prescribed oral contrast ingested. RADIATION DOSE: 5.85 CTDI (mGy) ; Combined studies COMPARISON: . TECHNIQUE: Multiple contiguous axial images were obtained through the abdomen and pelvis following b olus infusion of 80 ml Omnipaque 350 (iohexol) nonionic water-soluble contrast as a cumulative dose for multiple exams. Partial prescribed oral contrast ingested. Using automated exposure control and adjustment of the mA and/or kV according to patient size, radiation dose was kept as low as reasonab ly achievable to obtain optimal diagnostic quality images. DICOM format image data is available elec tronically for review and comparison. FINDINGS: Lower Lungs: Cardiomegaly with bibasilar consolidation and small pleural effusions. Liver: The liver has a homogeneous density without space-occupying lesion. There is no dilation of th e biliary tree. Small amount of abdominal ascites. Cholelithiasis. Spleen: Homogeneous density without enlargement. Pancreas: Unremarkable without mass or calcification. Kidneys: Normal in size and shape. No evidence of mass or hydronephrosis. Adrenal Glands: Unremarkable. Aorta: Atherosclerotic changes without aneurysmal dilation. Bowel/Mesentery: No bowel obstruction. Abdominal Wall: Intact. Retroperitoneum: No evidence of adenopathy in the retrocrural, para-aortic, or deep pelvic regions. Bladder: Contours are smooth. Reproductive Organs: No abnormal masses or calcifications seen. Inguinal: The inguinal region is unremarkable without evidence of adenopathy. Bony Structures: Levoscoliosis thoracolumbar spine. Degenerative changes lumbosacral junction. Old p elvic fractures. CONCLUSION: 1. Cardiomegaly with bibasilar consolidation and small pleural effusions. 2. Small amount of abdominal ascites. 3. Cholelithiasis. Electronically signed by: Saturnino Still MD 06/07/2018 1:33 AM EDT
--- NOTE | 2018-06-07 01:38 | CT ---
EXAM DATE: 06/07/2018 12:59 AM EDT AGE/SEX: 87 years / Female INDICATIONS: Chest pain and shortness of breath; abnormal chest x-ray; pneumonia. CLINICAL DATA: This is the patient's initial encounter. Patient reports that signs and symptoms have been present for 2 days and indicates a pain score of 7/10. MEDICAL/SURGICAL HISTORY: Congestive heart failure. Asthma. Hypertension. Colitis, Cystitis, SHILPI D, Hypothyroid, Appendectomy. RADIATION DOSE: 5.85 CTDI (mGy) ; Combined studies COMPARISON: [facility], CHEST 1V SINGLE AP, 06/05/2018. . TECHNIQUE: Multiple contiguous axial images were obtained through the chest during bolus infusion of 80 ml Omnipaque 350 (iohexol) nonionic water-soluble contrast as a cumulative dose for multiple exa ms. Images were obtained in suspended respiration using multiple row detector helical technique. U sing automated exposure control and adjustment of the mA and/or kV according to patient size, radiati on dose was kept as low as reasonably achievable to obtain optimal diagnostic quality images. DICOM format image data is available electronically for review and comparison. FINDINGS: Lungs: Bibasilar consolidation likely atelectasis. Scattered parenchymal densities in the upper lobe s greater in the right upper lobe noted. Mediastinum: There is good visualization of the great vessels of the middle mediastinum. No evidenc e of mediastinal or hilar adenopathy/mass. Cardiomegaly. Aortic valve replacement Pleurae: Small bilateral pleural effusions Axillae: Unremarkable. Bony Structures: Scoliosis and degenerative changes. Miscellaneous: The examination was extended to include the upper abdomen, and both adrenal glands ar e normal in size and configuration. CONCLUSION: 1. Cardiomegaly with bibasilar consolidation and small pleural effusions. 2. Scattered parenchymal densities in the upper lobes could be infectious or inflammatory. Electronically signed by: Saturnino Still MD 06/07/2018 1:37 AM EDT
[2018-06-07] MEDS: Levothyroxine 88 MCG Tablet PO SCH (07:39)
[2018-06-07] MEDS: Heparin - SQ 10,000 UNITS/ML Vial SQ SCH ×2 (07:39→18:54)
[2018-06-07] MEDS: Sod Chloride 0.9% Inj 1,000 ML IV.CONT SCH ×2 (07:40→22:11)
[2018-06-07] MEDS: MethylPREDNISolone Sod Succinate Inj 40 MG/ML Vial IV.PUSH SCH ×2 (07:40→12:53)
[2018-06-07] MEDS: Lactobacillus Acidophilus/L. Spores Tablet PO SCH ×3 (08:55→18:55)
[2018-06-07] MEDS: Amiodarone 200 MG Tablet PO SCH (08:56)
[2018-06-07 10:03] LABS: Baso % (Auto) 0.1 % (0.0-2.0); Hemoglobin 8.1 gm/dL (11.6-15.3); Lymph # (Auto) 1.8 th/mm3 (1.0-4.8); Lymph % (Auto) 15.9 % (9.0-44.0); Mean Corpuscular HGB Conc 32.5 % (32.0-36.0); Mean Corpuscular Hemoglobin 32.5 pg (27.0-34.0); Mean Corpuscular Volume 99.9 fL (80.0-100.0); Mean Platelet Volume 8.8 fL (7.0-11.0); Mono # (Auto) 0.6 th/mm3 (0.0-0.9); Mono % (Auto) 5.5 % (0.0-8.0); Neut # (Auto) 9.1 th/mm3 (1.8-7.7); Neut % (Auto) 78.5 % (16.0-70.0); Platelet Count 189 th/mm3 (150-450); Red Cell Distribution Width 17.2 % (11.6-17.2); White Blood Count 11.6 th/mm3 (4.0-11.0)
[2018-06-07 10:36] LABS: Anion Gap 6 meq/L (5-15); Blood Urea Nitrogen 12 mg/dL (7-18); Carbon Dioxide 28.3 meq/L (21.0-32.0); Chloride 105 meq/L (98-107); Glomerular Filtration Rate Greater Than 89 mL/min (>89); Glucose,Random 104 mg/dL (74-106); Potassium 3.6 meq/L (3.5-5.1); Sodium 139 meq/L (136-145)
[2018-06-07 10:48] LABS: Total Protein 6.1 g/dL (6.4-8.2)
--- NOTE | 2018-06-07 14:07 | P.PN ---
Subjective Interval history: Follow-up sepsis/pneumonia June 07, 2018-patient seen and examined, currently afebrile, some shortness of breath. Denies any chest pain. Still with some loose stool Physical Exam Vital signs: Vital Signs 06/06/18 16:00 06/06/18 19:35 06/06/18 20:00 Temperature 97.6 F 97.8 F Pulse Rate 69 73 77 Respiratory Rate 18 18 16 Blood Pressure 107/51 L 107/54 L Pulse Oximetry 98 97 06/07/18 00:00 06/07/18 08:00 06/07/18 08:39 Temperature 98.1 F 97.9 F Pulse Rate 76 70 70 Respiratory Rate 18 18 Blood Pressure 102/53 L 123/56 L Pulse Oximetry 93 L 97 06/07/18 12:00 Temperature 97.7 F Pulse Rate 72 Respiratory Rate 18 Blood Pressure 100/51 L Pulse Oximetry 98 Intake & Output 06/06/18 06/07/18 06/07/18 18:59 06:59 18:59 Intake Total 1100 / 1100 580 / 580 1000 / 1000 Output Total 1000 / 1000 Balance 1100 / 1100 -420 / -420 1000 / 1000 Weight 45 kg Intake: IV 1100 / 1100 100 / 100 1000 / 1000 NS Inj 1,000 ML @ 70 mls/hr IV. 1000 / 1000 1000 / 1000 CONT .[id number] TAZ Rx#:[id number] Zosyn 4.5 GM Premix 4.5 gm In 100 / 100 100 ml @ 200 mls/hr IV.SIG Q6H TAZ Rx#:[id number] Rocephin Inj 2,000 MG In NS Inj 100 / 100 100 ML @ 200 mls/hr IV.SIG Q24H TAZ Rx#:[id number] Oral 480 / 480 Output: Urine Amount (Catheter) 1000 / 1000 Indwelling Urethral Catheter 1000 / 1000 Narrative: Gen.: No acute distress Head: Normocephalic. Atraumatic. EENT: Pupils equal round and reactive to light. Nose without drainage. Airway intact. Throat without injection. Cardiovascular: Tachycardic. Regular rhythm. No murmurs, rubs or gallops. Respiratory: Tachypneic with bilateral rhonchi. Abdomen: Soft, nontender, nondistended. No peritoneal signs. Musculoskeletal: No gross deformities. No edema. Skin: No obvious rashes or erythema. Neuro: Sensory and motor grossly intact. Cranial nerves II through XII grossly intact. - Urinary Catheter Management Indwelling Urethral Catheter Cath placed during this visit: yes Reason for continuing: Chronic Urinary Retention Insertion date: 06/05/18 Insertion time: 22:16 Results - Labs CBC & Chem 7: 06/07/18 08:59 06/07/18 08:59 Laboratory Results - last 24 hr 06/05/18 06/07/18 06/07/18 22:25 08:59 08:59 WBC 11.6 H RBC 2.50 L Hgb 8.1 L D Hct 25.0 L MCV 99.9 MCH 32.5 MCHC 32.5 RDW 17.2 Plt Count 189 D MPV 8.8 Neut % (Auto) 78.5 H Lymph % (Auto) 15.9 [place] % (Auto) 5.5 Eos % (Auto) 0.0 Baso % (Auto) 0.1 Neut # (Auto) 9.1 H Lymph # (Auto) 1.8 [place] # (Auto) 0.6 Eos # (Auto) 0.0 Baso # (Auto) 0.0 WBC Differential . Differential Comment Auto diff final Sodium 139 Potassium 3.6 Chloride 105 D Carbon Dioxide 28.3 Anion Gap 6 BUN 12 Creatinine 0.63 Estimated GFR Greater than 89 Random Glucose 104 Calcium 7.0 L* D Prot Corrected Calcium 7.5 L Total Protein 6.1 L D Urine Color Yellow Urine Clarity Cloudy H Urine pH 7.0 Ur Specific [place] 1.009 Urine Protein Negative Urine Glucose (UA) Negative Urine Ketones Negative Urine Occult Blood Moderate H Urine Nitrate Negative Urine Bilirubin Negative Urine Urobilinogen Less than 2 Ur Leukocyte Esterase Large H Urine RBC 32 H Urine WBC 77 H Urine WBC Clumps Few H Ur Squamous Epith Cells <1 Ur Renal Epithelial Cell 1 Calcium Oxalate Crystal Rare H Amorphous Sediment Rare H Urine Bacteria Occasional H Hyaline Casts 1 Urine Mucus Few H Micro UA Comment Culture indicated Urine Culture Comments Culture indicated Microbiology 06/05/18 22:35 Sputum - Expectorated Sputum Gram Stain - Final 06/05/18 22:35 Sputum - Expectorated Sputum Sputum Culture - Final Heavy growth normal respiratory arcelia 06/05/18 22:25 Blood - Peripheral Aerobic Blood Culture - Preliminary No growth in 2 days 06/05/18 22:25 Blood - Peripheral Anaerobic Blood Culture - Preliminary No growth in 2 days 06/05/18 22:20 Blood - Peripheral Aerobic Blood Culture - Preliminary No growth in 2 days 06/05/18 22:20 Blood - Peripheral Anaerobic Blood Culture - Preliminary No growth in 2 days 06/05/18 22:25 Clean Catch Urine Urine Culture - Preliminary gram negative rods 06/05/18 22:25 Urine - Catheterized Urine Streptococcus pneumoniae Antigen ( M - Final Presumptive negative for streptococcus pneumoniae antigen, suggesting no current or recent infection. Infection due to Streptococcus pneumoniae cannot be ruled out since the antigen present in the sample may be below the detection limit of the test. 06/05/18 22:25 Urine - Catheterized Urine Legionella Antigen - Final Presumptive negative for Legionella pneumophila serogroup 1 antigen in urine, suggesting no recent or recurrent infection. Infection due to Legionella cannot be ruled out since other serogroups and species may cause disease, antigen may not be present in urine in early infection, and the level of antigen present in the urine may be below the detection limit of the test. - Imaging Impressions Abdomen/Pelvis CT 06/07/18 00:00 CONCLUSION: 1. Cardiomegaly with bibasilar consolidation and small pleural effusions. 2. Small amount of abdominal ascites. 3. Cholelithiasis. Chest CT 06/07/18 00:00 CONCLUSION: 1. Cardiomegaly with bibasilar consolidation and small pleural effusions. 2. Scattered parenchymal densities in the upper lobes could be infectious or inflammatory. Assessment and Plan - Plan 87-year-old female with 1. Pneumonia/sepsis/COPD Chest x-ray significant for left basilar airspace disease with pleural fluid, personally reviewed Rocephin/azithromycin Blood cultures pending Legionella/pneumococcal urinary antigens getting will d/c IV steroids Duo nebs 2. Urinary tract infection UA consistent with UTI Urine culture pending Antibiotics as above 3. Atrial fibrillation Continue home amiodarone and metoprolol Not on systemic anticoagulation 4. Hypertension/hyperlipidemia/hypothyroidism Continue home medications
[2018-06-07] MEDS: Morphine Sulfate Inj 2 MG/ML Vial IV.PUSH PRN (14:56)
[2018-06-07] MEDS ORDERED: ALPRAZolam 0.25 MG Tablet PO PRN (16:02)
[2018-06-07] MEDS: Sod Chloride 0.9% Inj 1,000 ML IV.SIG SCH (22:10)
[2018-06-08] MEDS: Levothyroxine 88 MCG Tablet PO SCH (06:12)
[2018-06-08] MEDS: Heparin - SQ 10,000 UNITS/ML Vial SQ SCH ×2 (06:12→18:02)
--- NOTE | 2018-06-08 10:15 | P.PN ---
Subjective Interval history: Follow-up sepsis/pneumonia 06/08: Seen in his bedroom no new issues, no nausea, vomit or diarrhea. Physical Exam Vital signs: Vital Signs 06/07/18 12:00 06/07/18 15:17 06/07/18 16:00 Temperature 97.7 F 97.4 F L Pulse Rate 72 85 84 Respiratory Rate 18 20 22 Blood Pressure 100/51 L 134/63 Pulse Oximetry 98 97 06/07/18 19:48 06/07/18 20:00 06/08/18 00:00 Temperature 97.8 F 97.9 F Pulse Rate 82 84 80 Respiratory Rate 16 18 18 Blood Pressure 123/57 L 128/58 L Pulse Oximetry 96 95 06/08/18 04:00 Temperature 97.5 F L Pulse Rate 77 Respiratory Rate 18 Blood Pressure 143/69 H Pulse Oximetry 98 Intake & Output 06/07/18 06/08/18 06/08/18 18:59 06:59 18:59 Intake Total 2900 / 2900 1250 / 1250 Output Total 600 / 600 800 / 800 Balance 2300 / 2300 450 / 450 Weight 48.6 kg Intake: IV 2100 / 2100 1000 / 1000 NS Inj 1,000 ML @ 70 mls/hr IV. 1000 / 1000 1000 / 1000 CONT .[id number] TAZ Rx#:[id number] NS Inj 1,000 ML @ Wide Open IV. 1000 / 1000 SIG .Q0M TAZ Rx#:[id number] Rocephin Inj 2,000 MG In NS Inj 100 / 100 100 ML @ 200 mls/hr IV.SIG Q24H TAZ Rx#:[id number] Oral 800 / 800 250 / 250 Output: Urine Amount (Catheter) 600 / 600 800 / 800 Indwelling Urethral Catheter 600 / 600 800 / 800 Other: # Voids 0 # Bowel Movements 2 Narrative: Gen.: No acute distress Head: Normocephalic. Atraumatic. EENT: Pupils equal round and reactive to light. Nose without drainage. Airway intact. Throat without injection. Cardiovascular: Tachycardic. Regular rhythm. No murmurs, rubs or gallops. Respiratory: Tachypneic with bilateral rhonchi. Abdomen: Soft, nontender, nondistended. No peritoneal signs. Musculoskeletal: No gross deformities. No edema. Skin: No obvious rashes or erythema. Neuro: Sensory and motor grossly intact. Cranial nerves II through XII grossly intact. - Urinary Catheter Management Indwelling Urethral Catheter Cath placed during this visit: yes Reason for continuing: Chronic Urinary Retention Insertion date: 06/05/18 Insertion time: 22:16 Results - Labs CBC & Chem 7: 06/10/18 14:07 06/10/18 14:07 Laboratory Results - last 24 hr 06/05/18 06/07/18 22:25 08:59 Sodium 139 Potassium 3.6 Chloride 105 D Carbon Dioxide 28.3 Anion Gap 6 BUN 12 Creatinine 0.63 Estimated GFR Greater than 89 Random Glucose 104 Calcium 7.0 L* D Prot Corrected Calcium 7.5 L Total Protein 6.1 L D Urine Color Yellow Urine Clarity Cloudy H Urine pH 7.0 Ur Specific [place] 1.009 Urine Protein Negative Urine Glucose (UA) Negative Urine Ketones Negative Urine Occult Blood Moderate H Urine Nitrate Negative Urine Bilirubin Negative Urine Urobilinogen Less than 2 Ur Leukocyte Esterase Large H Urine RBC 32 H Urine WBC 77 H Urine WBC Clumps Few H Ur Squamous Epith Cells <1 Ur Renal Epithelial Cell 1 Calcium Oxalate Crystal Rare H Amorphous Sediment Rare H Urine Bacteria Occasional H Hyaline Casts 1 Urine Mucus Few H Micro UA Comment Culture indicated Urine Culture Comments Culture indicated Microbiology 06/05/18 22:25 Clean Catch Urine Urine Culture - Preliminary Enterobacter cloacae Burkholderia cepacia 06/05/18 22:35 Sputum - Expectorated Sputum Gram Stain - Final 06/05/18 22:35 Sputum - Expectorated Sputum Sputum Culture - Final Heavy growth normal respiratory arcelia 06/05/18 22:25 Blood - Peripheral Aerobic Blood Culture - Preliminary No growth in 2 days 06/05/18 22:25 Blood - Peripheral Anaerobic Blood Culture - Preliminary No growth in 2 days 06/05/18 22:20 Blood - Peripheral Aerobic Blood Culture - Preliminary No growth in 2 days 06/05/18 22:20 Blood - Peripheral Anaerobic Blood Culture - Preliminary No growth in 2 days - Imaging Abdomen/Pelvis CT 06/07/18 00:00 CONCLUSION: 1. Cardiomegaly with bibasilar consolidation and small pleural effusions. 2. Small amount of abdominal ascites. 3. Cholelithiasis. Chest CT 06/07/18 00:00 CONCLUSION: 1. Cardiomegaly with bibasilar consolidation and small pleural effusions. 2. Scattered parenchymal densities in the upper lobes could be infectious or inflammatory. Assessment and Plan - Plan 87-year-old female with 1. Pneumonia/sepsis/COPD Chest x-ray significant for left basilar airspace disease with pleural fluid, personally reviewed Rocephin/azithromycin Blood cultures pending Legionella/pneumococcal urinary antigens getting will d/c IV steroids Duo nebs 2. Urinary tract infection UA consistent with UTI Urine culture pending Antibiotics as above 3. Atrial fibrillation Continue home amiodarone and metoprolol Not on systemic anticoagulation 4. Hypertension/hyperlipidemia/hypothyroidism Continue home medications 5. chronic urinary retention on chronic Christie cath, on Pyridium, Methenamine and Flomax. Code Status: Full code. Discussed Condition With: patient and nurse. Discharge Planning: not yet cleared for discharge.
[2018-06-08] MEDS: Lactobacillus Acidophilus/L. Spores Tablet PO SCH ×3 (10:17→18:03)
[2018-06-08] MEDS: Amiodarone 200 MG Tablet PO SCH (10:18)
[2018-06-08] MEDS: Sod Chloride 0.9% Inj 1,000 ML IV.SIG SCH ×2 (10:18→15:01)
[2018-06-08 11:08] LABS: Baso % (Auto) 0.1 % (0.0-2.0); Lymph # (Auto) 1.8 th/mm3 (1.0-4.8); Lymph % (Auto) 14.8 % (9.0-44.0); Mean Corpuscular HGB Conc 34.6 % (32.0-36.0); Mean Corpuscular Hemoglobin 34.1 pg (27.0-34.0); Mean Corpuscular Volume 98.6 fL (80.0-100.0); Mono # (Auto) 0.5 th/mm3 (0.0-0.9); Mono % (Auto) 4.4 % (0.0-8.0); Neut # (Auto) 9.9 th/mm3 (1.8-7.7); Neut % (Auto) 80.7 % (16.0-70.0); Platelet Count 215 th/mm3 (150-450); Red Blood Count 2.63 mil/mm3 (4.00-5.30); Red Cell Distribution Width 17.6 % (11.6-17.2); White Blood Count 12.3 th/mm3 (4.0-11.0)
[2018-06-08 11:32] LABS: Anion Gap 5 meq/L (5-15); Blood Urea Nitrogen 17 mg/dL (7-18); Carbon Dioxide 30.5 meq/L (21.0-32.0); Chloride 104 meq/L (98-107); Glomerular Filtration Rate Greater Than 89 mL/min (>89); Glucose,Random 106 mg/dL (74-106); Potassium 3.9 meq/L (3.5-5.1); Sodium 139 meq/L (136-145)
[2018-06-08 11:33] LABS: Alanine Aminotransferase 41 U/L (10-53); Albumin 2.7 g/dL (3.4-5.0); Alkaline Phosphatase 91 U/L (45-117); Aspartate Aminotransferase 17 U/L (15-37); Total Protein 6.7 g/dL (6.4-8.2)
[2018-06-08] MEDS: Morphine Sulfate Inj 2 MG/ML Vial IV.PUSH PRN (14:42)
[2018-06-08] MEDS: Azithromycin 250 MG Tablet PO SCH (22:18)
[2018-06-08] MEDS ORDERED: Pharmacy Ordered Lab Info OTHER ONE (23:45)
[2018-06-09] MEDS: Heparin - SQ 10,000 UNITS/ML Vial SQ SCH ×2 (05:15→17:38)
[2018-06-09] MEDS: Levothyroxine 88 MCG Tablet PO SCH (05:15)
[2018-06-09] MEDS: Lactobacillus Acidophilus/L. Spores Tablet PO SCH ×3 (09:36→17:37)
[2018-06-09] MEDS: Amiodarone 200 MG Tablet PO SCH (09:36)
[2018-06-09] MEDS: Sod Chloride 0.9% Inj 1,000 ML IV.CONT SCH ×3 (09:37→19:17)
--- NOTE | 2018-06-09 15:37 | P.PN ---
Subjective Interval history: Follow-up for sepsis, pneumonia, UTIpatient awake, alert oriented x3. Denies any shortness of breath although she is noted tachypneic. Indicates this is how she breathes. No chest pain, no fever, no nausea, no vomiting, no diarrhea. Has a chronic indwelling catheter. Anxious to go back to rehab facility. Eating well. Physical Exam Vital signs: Vital Signs 06/08/18 16:00 06/08/18 20:00 06/08/18 20:18 Temperature 97.6 F 98.0 F Pulse Rate 82 89 78 Respiratory Rate 18 18 24 Blood Pressure 157/69 H 171/82 H Pulse Oximetry 96 92 L 95 06/09/18 00:00 06/09/18 04:00 06/09/18 08:00 Temperature 97.5 F L 97.3 F L 97.5 F L Pulse Rate 93 H 83 80 Respiratory Rate 18 18 20 Blood Pressure 168/80 H 168/80 H 177/84 H Pulse Oximetry 92 L 95 94 L 06/09/18 08:03 06/09/18 09:37 06/09/18 12:00 Temperature 97.5 F L Pulse Rate 80 78 86 Respiratory Rate 16 20 Blood Pressure 147/67 H Pulse Oximetry 94 L 91 L Intake & Output 06/08/18 06/09/18 06/09/18 18:59 06:59 18:59 Intake Total 4300 / 4300 838 / 838 Output Total 500 / 500 1500 / 1500 Balance 3800 / 3800 -1500 / -1500 838 / 838 Weight 50.3 kg Intake: IV 3100 / 3100 838 / 838 NS Inj 1,000 ML @ 70 mls/hr IV. 1000 / 1000 CONT .[id number] TAZ Rx#:[id number] NS Inj 1,000 ML @ Wide Open IV. 1999 / 1999 838 / 838 SIG .Q0M TAZ Rx#:[id number] Rocephin Inj 2,000 MG In NS Inj 100 / 100 100 ML @ 200 mls/hr IV.SIG Q24H TAZ Rx#:[id number] Oral 1200 / 1200 Output: Urine 1500 / 1500 Urine Amount (Catheter) 500 / 500 Indwelling Urethral Catheter 500 / 500 Other: Date of Last Bowel Movement 06/09/18 # Bowel Movements 3 1 # Incontinent Bowel Movements 1 Narrative: Gen.: 87-year-old elderly female no acute distress Head: Normocephalic. Atraumatic. EENT: Pupils equal round and reactive to light. Nose without drainage. Airway intact. Throat without injection. Cardiovascular: S1-S2, irregular, no murmurs, rubs or gallops. Respiratory: Breath sounds diminished. Abdomen: Soft, nontender, nondistended. No peritoneal signs. Musculoskeletal: No gross deformities. No edema. Skin: No obvious rashes or erythema. Neuro: Awake, alert oriented x3. No focal deficits. 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 22:25 Blood - Peripheral Aerobic Blood Culture - Preliminary No growth in 4 days 06/05/18 22:25 Blood - Peripheral Anaerobic Blood Culture - Preliminary No growth in 4 days 06/05/18 22:20 Blood - Peripheral Aerobic Blood Culture - Preliminary No growth in 4 days 06/05/18 22:20 Blood - Peripheral Anaerobic Blood Culture - Preliminary No growth in 4 days Assessment and Plan - Plan 87-year-old female with past medical history significant for atrial fibrillation (anticoagulated on aspirin), COPD, congestive heart failure, hypertension, hyperlipidemia and hypothyroidism since to the emergency department for the evaluation of shortness of breath, cough and nausea. Pt. brought via [facility] from her [facility] facility and per report her oxygen saturation was in the 80s. She was given a DuoNeb and IV Solu-Medrol. STEMI alert was called in the field however EKG showed normal sinus rhythm without ST segment elevation or depression in the emergency department. The patient denied chest pain. No abdominal pain. No emesis or diarrhea. Fevers/chills. No lateralizing signs/symptoms. Pneumonia/sepsis/COPD Chest x-ray significant for left basilar airspace disease with pleural fluid, personally reviewed -on Rocephin/azithromycin -Blood cultures negative so far -Legionella/pneumococcal urinary antigens negative -Duo nebs Urinary tract infection UA consistent with UTI Chronic indwelling catheter. - MDRO sens. noted-Enterobacter cloacae, Burkholderia, MDRO -will obtain ID consult -change thornton catheter. Chronic urinary retention reviewed med records from SNF, chronic thornton, on Pyridium, Methenamine, and Flomax -will haver RN change thornton Atrial fibrillation -Continue home amiodarone and metoprolol -Not on systemic anticoagulation-continue ASA Hypertension/hyperlipidemia/hypothyroidism -Continue home medications Leukocytosis -Improving Follow labs in am CM for dc planning Plan for SNF after ID recommendations -Sat ? Code Status: Full code Discussed Condition With: RN, pt., CM Discharge Planning: to SNF, poss tomorrow
--- NOTE | 2018-06-09 17:45 | MB ---
cc: Ronaldo Dalal MD DATE: 06/09/2018 REQUESTING PROVIDER: JAMEY Santiago. REASON FOR CONSULTATION: MDRO. Admitted with sepsis, UTI, pneumonia. HISTORY OF PRESENT ILLNESS: This is an 87-year-old white female who was admitted to the hospital via a halfway facility. The patient has a chronic indwelling Christie catheter. She was noted to have respiratory symptoms and presented with shortness of breath, nausea and cough and was noted to have at desaturation on pulse oximetry. On presentation, temperature was 101.2 degrees, white count was 22.7. Urinalysis was performed and subsequently urine culture. 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 She was started on ceftriaxone. The white blood cell count has improved. The patient's temperature also improved. This consultation was requested because of multidrug resistant urinary infection. She appears to be somewhat short of breath, but tells me that this is her baseline. She has no sputum production and does not appear to have any coughing spells at this point. A chest CT on 06/07/2018 showed cardiomegaly with bibasilar consolidation and small pleural effusions, scattered parenchymal densities in the upper lobes. Blood cultures taken on admission have no growth. The patient's Christie catheter has not been replaced since admission. She has a chronic indwelling Christie catheter and has been taking prophylactic antibiotic in the form of methenamine mandelate. PAST MEDICAL HISTORY: Hypertension, hyperlipidemia, hypocalcemia, hypothyroidism, asthma, atrial fibrillation, COPD, colitis, cystitis, congestive heart failure, insomnia. PAST SURGICAL HISTORY: History of appendectomy, history of coronary artery bypass graft surgery. ALLERGIES: 1. NAPROXEN 2. ALENDRONATE SODIUM. MEDICATIONS: 1. Xanax. 2. Cordarone. 3. Ecotrin. 4. Azithromycin. 5. Ceftriaxone. 6. Lactinex 7. Synthroid. 8. Melatonin. 9. Toprol-XL. 10. Pravachol. 11. Flomax. SOCIAL HISTORY: No tobacco. No illicit drugs. No alcohol use. FAMILY HISTORY: Noncontributory. REVIEW OF SYSTEMS: All systems have been reviewed and are negative, except for history of present illness. PHYSICAL EXAMINATION: GENERAL: This is a frail, thin female who is in no acute distress. She is awake, but appears somewhat short of breath. VITAL SIGNS: Includes temperature of 97.8, BP 177/82, respirations 20, heart rate 87. HEENT: Head is atraumatic. Extraocular movements grossly intact. Pupils reactive to light. No icterus. Oropharynx: Moist mucosa. No visible lesions. NECK: No adenopathy or swelling. LUNGS: Coarse diffuse rhonchi with decreased breath sounds at the bases. HEART: No audible murmurs, rubs or gallops. ABDOMEN: Bowel sounds present. Soft, nontender. RECTAL: Not performed. EXTREMITIES: Diffuse muscle wasting. No clubbing, cyanosis or edema. SKIN: No rash. NEUROLOGIC: Nonfocal. PSYCHIATRIC: The patient is calm and cooperative. LABORATORY DATA: WBC 12.3, platelets 215, 80% neutrophils, hemoglobin 9.0. Liver function test normal. Creatinine 0.51, estimated GFR 89. C. difficile toxin on 06/08/2018 was negative. IMPRESSION: 1. Urinary tract infection due to multidrug resistant Enterobacter and Burkholderia. 2. Chronic indwelling Christie catheter. 3. Leukocytosis secondary to infection. White blood cell count improved. 4. Features of sepsis on admission. RECOMMENDATIONS: 1. Discontinue ceftriaxone because the Enterobacter is resistant. 2. Begin ertapenem IV. 3. Change Christie catheter. 4. Repeat the urine culture tomorrow morning. 5. Continue antibiotic treatment until clearance of the urinary infection. The azithromycin can be continued also for pulmonary coverage. Thank you for this consultation. I will follow the patient's progress along with you. MD SILVANA Solorzano/carly , 04:54 PM , 05:05 PM SANDY
[2018-06-09] MEDS: Azithromycin 250 MG Tablet PO SCH (22:10)
[2018-06-10] MEDS: Heparin - SQ 10,000 UNITS/ML Vial SQ SCH ×2 (06:16→17:56)
[2018-06-10] MEDS: Levothyroxine 88 MCG Tablet PO SCH (06:16)
[2018-06-10] MEDS: Lactobacillus Acidophilus/L. Spores Tablet PO SCH ×3 (08:53→17:56)
[2018-06-10] MEDS: Amiodarone 200 MG Tablet PO SCH (08:53)
[2018-06-10] MEDS: Sod Chloride 0.9% Inj 1,000 ML IV.CONT SCH ×2 (08:54→22:19)
--- NOTE | 2018-06-10 11:53 | P.PNIM ---
Subjective Interval history: Patient reports tolerating diet. Getting stronger. No other complaints at this time. No fevers or chills. Physical Exam Vital signs: Vital Signs 06/09/18 12:00 06/09/18 16:00 06/09/18 18:00 Temperature 97.5 F L 97.8 F Pulse Rate 86 87 69 Respiratory Rate 20 20 18 Blood Pressure 147/67 H 177/82 H Pulse Oximetry 91 L 92 L 06/09/18 19:58 06/09/18 20:00 06/09/18 23:51 Temperature 97.7 F 97.8 F Pulse Rate 59 L 90 82 Respiratory Rate 14 20 17 Blood Pressure 163/74 H 125/66 Pulse Oximetry 92 L 94 L 96 06/10/18 04:35 06/10/18 07:51 06/10/18 08:38 Temperature 97.2 F L 97.5 F L Pulse Rate 80 76 70 Respiratory Rate 16 16 16 Blood Pressure 141/63 H 120/69 Pulse Oximetry 96 100 97 06/10/18 08:53 Temperature Pulse Rate 72 Respiratory Rate Blood Pressure Pulse Oximetry Intake & Output 06/09/18 06/10/18 06/10/18 18:59 06:59 18:59 Intake Total 1038 / 1038 1480 / 1480 Output Total 1950 / 1950 1800 / 1800 Balance -912 / -912 -320 / -320 Weight 50 kg Intake: IV 1038 / 1038 1000 / 1000 NS Inj 1,000 ML @ 70 mls/hr IV. 1000 / 1000 CONT .[id number] TAZ Rx#:[id number] INVanz Inj 1,000 MG In NS Inj 100 / 100 100 ML @ 200 mls/hr IV.SIG Q24H TAZ Rx#:[id number] NS Inj 1,000 ML @ Wide Open IV. 838 / 838 SIG .Q0M TAZ Rx#:[id number] Rocephin Inj 2,000 MG In NS Inj 100 / 100 100 ML @ 200 mls/hr IV.SIG Q24H TAZ Rx#:[id number] Oral 480 / 480 Output: Urine 1000 / 1000 Urine Amount (Catheter) 950 / 950 1800 / 1800 Indwelling Urethral Catheter 950 / 950 1800 / 1800 Other: Date of Last Bowel Movement 06/09/18 06/09/18 06/10/18 # Bowel Movements 2 Narrative: Gen.: 87-year-old elderly frail female in no acute distress Head: Normocephalic. Atraumatic. Cardiovascular: S1-S2, irregular, no murmurs, rubs or gallops. Respiratory: Breath sounds diminished. Abdomen: Soft, nontender, nondistended. No peritoneal signs. Normoactive bowel sounds Musculoskeletal: No gross deformities. No edema. Skin: No obvious rashes or erythema. Neuro: Awake, alert oriented x3. No focal deficits. - Urinary Catheter Management Indwelling Urethral Catheter Cath placed during this visit: yes Reason for continuing: Chronic Urinary Retention Insertion date: 06/09/18 Insertion time: 16:45 Results - Labs CBC & Chem 7: 06/08/18 09:37 06/08/18 09:37 Microbiology 06/05/18 22:25 Blood - Peripheral Aerobic Blood Culture - Final No growth in 5 days 06/05/18 22:25 Blood - Peripheral Anaerobic Blood Culture - Final No growth in 5 days 06/05/18 22:20 Blood - Peripheral Aerobic Blood Culture - Final No growth in 5 days 06/05/18 22:20 Blood - Peripheral Anaerobic Blood Culture - Final No growth in 5 days 06/05/18 22:25 Clean Catch Urine Urine Culture - Final 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 Pt. brought via [facility] from her [facility] facility and per report her oxygen saturation was in the 80s. Sepsis present on admission with leukocytosis and tachycardia source likely due to pneumonia and complex urinary tract infection. Pneumonia Chest x-ray significant for left basilar airspace disease with pleural fluid, personally reviewed -azithromycin, infectious disease stop ceftriaxone, on Invanz IV -Blood cultures negative so far -Legionella/pneumococcal urinary antigens negative COPD, chronic with no active exacerbation Duonebs Urinary tract infection complex -prehospital due to previous indwelling Thornton catheter UA consistent with UTI Chronic indwelling catheter. - MDRO sens. noted-Enterobacter cloacae, Burkholderia, MDRO -will obtain ID consult -change thornton catheter. Infectious disease currently following and has started on IV Invanz. Await repeat urine cultures. Chronic urinary retention reviewed med records from SNF, chronic thornton, on Pyridium, Methenamine, and Flomax -Thornton changed out. Atrial fibrillationcurrently rate controlled. -Continue home amiodarone and metoprolol -Not on systemic anticoagulation-continue ASA Hypertension/hyperlipidemia/hypothyroidism -Continue home medications Leukocytosis -Improving Discharge Planning: pending infectious disease clearance and recommendations on abx. DC planning back to SNF
[2018-06-10 14:14] LABS: Hematocrit 28.1 % (35.0-46.0); Hemoglobin 9.5 gm/dL (11.6-15.3); Mean Corpuscular HGB Conc 33.8 % (32.0-36.0); Mean Corpuscular Hemoglobin 33.2 pg (27.0-34.0); Mean Corpuscular Volume 98.2 fL (80.0-100.0); Mean Platelet Volume 8.7 fL (7.0-11.0); Platelet Count 206 th/mm3 (150-450); Red Blood Count 2.86 mil/mm3 (4.00-5.30); Red Cell Distribution Width 16.9 % (11.6-17.2); White Blood Count 9.9 th/mm3 (4.0-11.0)
[2018-06-10 14:51] LABS: Anion Gap 4 meq/L (5-15); Blood Urea Nitrogen 17 mg/dL (7-18); Calcium 8.3 mg/dL (8.5-10.1); Carbon Dioxide 36.5 meq/L (21.0-32.0); Chloride 97 meq/L (98-107); Glomerular Filtration Rate Greater Than 89 mL/min (>89); Glucose,Random 88 mg/dL (74-106); Potassium 3.6 meq/L (3.5-5.1); Sodium 137 meq/L (136-145)
[2018-06-10] MEDS: Azithromycin 250 MG Tablet PO SCH ×2 (20:49→22:19)
[2018-06-11] MEDS: Levothyroxine 88 MCG Tablet PO SCH (06:15)
[2018-06-11] MEDS: Heparin - SQ 10,000 UNITS/ML Vial SQ SCH ×2 (06:15→18:15)
[2018-06-11] MEDS: Lactobacillus Acidophilus/L. Spores Tablet PO SCH ×3 (09:49→18:15)
[2018-06-11] MEDS: Amiodarone 200 MG Tablet PO SCH (09:49)
--- NOTE | 2018-06-11 10:58 | P.PNIM ---
Subjective Interval history: Reports she is starting to feel better. She wants assistance in getting up in a chair to eat her food breakfast. Physical Exam Vital signs: Vital Signs 06/10/18 11:59 06/10/18 13:00 06/10/18 15:31 Temperature 97.7 F 97.9 F Pulse Rate 79 72 81 Respiratory Rate 18 16 16 Blood Pressure 154/63 H 148/66 H Pulse Oximetry 99 96 06/10/18 19:56 06/11/18 00:05 06/11/18 04:02 Temperature 97.7 F 97.9 F Pulse Rate 85 77 68 Respiratory Rate 16 17 23 Blood Pressure 156/80 H 144/67 H Pulse Oximetry 96 96 06/11/18 04:05 06/11/18 07:43 06/11/18 08:00 Temperature 97.5 F L 97.8 F Pulse Rate 76 75 Respiratory Rate 16 20 Blood Pressure 144/88 H 171/74 H Pulse Oximetry 95 99 98 06/11/18 10:40 Temperature Pulse Rate Respiratory Rate Blood Pressure Pulse Oximetry 99 Intake & Output 06/10/18 06/11/18 06/11/18 18:59 06:59 18:59 Intake Total 620 / 620 1287 / 1287 Output Total 950 / 950 1800 / 1800 Balance -330 / -330 -513 / -513 Weight 50 kg Intake: IV 927 / 927 NS Inj 1,000 ML @ 70 mls/hr IV. 827 / 827 CONT .[id number] TAZ Rx#:[id number] INVanz Inj 1,000 MG In NS Inj 100 / 100 100 ML @ 200 mls/hr IV.SIG Q24H TAZ Rx#:[id number] Oral 620 / 620 360 / 360 Output: Urine 950 / 950 1800 / 1800 Other: Date of Last Bowel Movement 06/10/18 06/10/18 # Bowel Movements 2 1 Narrative: Gen.: No acute distress Head: Normocephalic. Atraumatic. Cardiovascular: Irregular rate and rhythm. No murmurs, rubs or gallops. Respiratory: Relatively clear to auscultation bilaterally Abdomen: Soft, nontender, nondistended. Normoactive bowel sounds GUFoley in place Musculoskeletal: No gross deformities. No edema. Neuro: Sensory and motor grossly intact. Cranial nerves II through XII grossly intact. Alert oriented person and place - Urinary Catheter Management Indwelling Urethral Catheter Cath placed during this visit: yes Reason for continuing: Chronic Urinary Retention Insertion date: 06/05/18 Insertion time: 22:16 Results - Labs CBC & Chem 7: 06/10/18 14:07 06/10/18 14:07 Laboratory Results - last 24 hr 06/10/18 06/10/18 14:07 14:07 WBC 9.9 RBC 2.86 L Hgb 9.5 L Hct 28.1 L MCV 98.2 MCH 33.2 MCHC 33.8 RDW 16.9 Plt Count 206 MPV 8.7 Sodium 137 Potassium 3.6 Chloride 97 L Carbon Dioxide 36.5 H Anion Gap 4 L BUN 17 Creatinine 0.40 L Estimated GFR Greater than 89 Random Glucose 88 Calcium 8.3 L Microbiology 06/10/18 06:00 Catheterized Urine Urine Culture - Preliminary Alicia albicans 06/05/18 22:25 Blood - Peripheral Aerobic Blood Culture - Final No growth in 5 days 06/05/18 22:25 Blood - Peripheral Anaerobic Blood Culture - Final No growth in 5 days 06/05/18 22:20 Blood - Peripheral Aerobic Blood Culture - Final No growth in 5 days 06/05/18 22:20 Blood - Peripheral Anaerobic Blood Culture - Final No growth in 5 days Assessment and Plan - Plan 87-year-old female with past medical history significant for atrial fibrillation (anticoagulated on aspirin), COPD, congestive heart failure, hypertension, hyperlipidemia and hypothyroidism since to the emergency department for the evaluation of shortness of breath, cough and nausea. Pt. brought via [facility] from her [facility] facility and per report her oxygen saturation was in the 80s. Sepsis present on admission with leukocytosis and tachycardia source likely due to pneumonia and complex urinary tract infection. Pneumonia Chest x-ray significant for left basilar airspace disease with pleural fluid, personally reviewed -azithromycin, infectious disease stopped ceftriaxone, on Invanz IV -Blood cultures negative so far -Legionella/pneumococcal urinary antigens negative COPD, chronic with no active exacerbation Continue Duonebs Urinary tract infection complex -prehospital due to previous indwelling Thornton catheter UA consistent with UTI Chronic indwelling catheter. - MDRO sens. noted-Enterobacter cloacae, Burkholderia, MDRO -Appreciate infectious disease recommendations -change thornton catheter. Infectious disease currently following and has started on IV Invanz. Await repeat preliminary urine cultures show Alicia. Chronic urinary retention reviewed med records from SNF, chronic thornton, on Pyridium, Methenamine, and Flomax -Thornton changed out. Atrial fibrillationcurrently rate controlled. -Continue home amiodarone and metoprolol -Not on systemic anticoagulation-continue ASA Hypertension/hyperlipidemia/hypothyroidism -Continue home medications Leukocytosis -Improving Continue physical therapy Discharge Planning: pending infectious disease clearance and recommendations on abx. DC planning back to SNF
--- NOTE | 2018-06-11 13:07 | P.PNID ---
Subjective Remarks: Patient feels okay. Afebrile. The repeat urine culture preliminary at 24 hours has Alicia. No fever or chills. Has Christie catheter in place which has clear yellow urine. Denies back pain. Antibiotics: Ertapenem Lines: Peripheral IV intact Allergies/Adverse Reactions: Allergies alendronate sodium Allergy (Verified 06/05/18 22:56) Edema, Generalized naproxen Allergy (Verified 06/05/18 22:56) Edema, Generalized Objective Vital Signs 06/10/18 15:31 06/10/18 19:56 06/11/18 00:05 Temperature 97.9 F 97.7 F 97.9 F Pulse Rate 81 85 77 Respiratory Rate 16 16 17 Blood Pressure 148/66 H 156/80 H 144/67 H Pulse Oximetry 96 96 96 06/11/18 04:02 06/11/18 04:05 06/11/18 07:43 Temperature 97.5 F L Pulse Rate 68 76 Respiratory Rate 23 16 Blood Pressure 144/88 H Pulse Oximetry 95 99 06/11/18 08:00 06/11/18 10:40 06/11/18 12:00 Temperature 97.8 F 97.6 F Pulse Rate 75 77 Respiratory Rate 16 20 Blood Pressure 171/74 H 170/74 H Pulse Oximetry 98 99 98 Intake & Output 06/10/18 06/11/18 06/11/18 18:59 06:59 18:59 Intake Total 620 / 620 1287 / 1287 Output Total 950 / 950 1800 / 1800 Balance -330 / -330 -513 / -513 Weight 50 kg Intake: IV 927 / 927 NS Inj 1,000 ML @ 70 mls/hr IV. 827 / 827 CONT .[id number] [facility] Rx#:[id number] INVanz Inj 1,000 MG In NS Inj 100 / 100 100 ML @ 200 mls/hr IV.SIG Q24H [facility] Rx#:[id number] Oral 620 / 620 360 / 360 Output: Urine 950 / 950 1800 / 1800 Other: Date of Last Bowel Movement 06/10/18 06/10/18 # Bowel Movements 2 1 06/10/18 06:00 Catheterized Urine Urine Culture - Preliminary Alicia albicans 06/05/18 22:25 Blood - Peripheral Aerobic Blood Culture - Final No growth in 5 days 06/05/18 22:25 Blood - Peripheral Anaerobic Blood Culture - Final No growth in 5 days 06/05/18 22:20 Blood - Peripheral Aerobic Blood Culture - Final No growth in 5 days 06/05/18 22:20 Blood - Peripheral Anaerobic Blood Culture - Final No growth in 5 days 06/05/18 22:25 Clean Catch Urine Urine Culture - Final 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 Presumed esophageal stent. Tortuous aorta. Trace right pleural fluid. Abdomen/Pelvis CT 06/07/18 00:00 CONCLUSION: 1. Cardiomegaly with bibasilar consolidation and small pleural effusions. 2. Small amount of abdominal ascites. 3. Cholelithiasis. Chest CT 06/07/18 00:00 CONCLUSION: 1. Cardiomegaly with bibasilar consolidation and small pleural effusions. 2. Scattered parenchymal densities in the upper lobes could be infectious or inflammatory. Physical Exam: GENERAL: Alert and oriented, no acute distress. HEENT: Pupils reactive to light. Extraocular movements intact. No icterus. NECK: Supple without adenopathy. No swelling. LUNGS: Clear to auscultation HEART: Regular S1 and S2 ABDOMEN: Soft nontender. 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 Chronic indwelling Christie catheter Repeat urine culture has Alicia. Recommendation: Monitor the urine culture. If the urine culture is without the previously cultured resistant organism, the ertapenem can be discontinued. Give a 3-day course of Diflucan p.o. for Alicia. She can be discharged if the repeat urine culture is clear of the resistant organism.
[2018-06-11] MEDS: Sod Chloride 0.9% Inj 1,000 ML IV.CONT SCH (13:55)
[2018-06-11] MEDS: Azithromycin 250 MG Tablet PO SCH (22:26)
[2018-06-12] MEDS: Sod Chloride 0.9% Inj 1,000 ML IV.CONT SCH (02:23)
[2018-06-12] MEDS: Levothyroxine 88 MCG Tablet PO SCH (06:51)
[2018-06-12] MEDS: Heparin - SQ 10,000 UNITS/ML Vial SQ SCH (06:52)
[2018-06-12] MEDS: Amiodarone 200 MG Tablet PO SCH (08:05)
[2018-06-12] MEDS: Lactobacillus Acidophilus/L. Spores Tablet PO SCH (08:05)
[2018-06-12 08:20] VITALS: BP 189/79; PULSE 97; RESP 18; TEMP 97.4; O2SAT 98
--- NOTE | 2018-06-12 10:04 | P.DS ---
Date of admission: 06/06/18 01:34 Primary care physician: Georgi Wayne MD Brief History from admission: 87-year-old female with past medical history significant for atrial fibrillation (anticoagulated on aspirin), COPD, congestive heart failure, hypertension, hyperlipidemia and hypothyroidism since to the emergency department for the evaluation of shortness of breath, cough and nausea. The patient was brought via [facility] from her custodial facility and per report her oxygen saturation was in the 80s. She was given a DuoNeb and IV Solu- Medrol. STEMI alert was called in the field however EKG showed normal sinus rhythm without ST segment elevation or depression in the emergency department. The patient denies chest pain. No abdominal pain. No emesis or diarrhea. Fevers/chills. No lateralizing signs/symptoms. Patient update on day of discharge: Patient states that she is doing well. No complaint of shortness of breath or abdominal pain. She wants to sit up for breakfast. She is happy she will be going home soon. DS: Diagnosis - Discharge Diagnosis (1) Sepsis Status: Resolved Diagnosis: Principal (2) Pneumonia Status: Acute Diagnosis: Principal (3) UTI (urinary tract infection) due to urinary indwelling catheter Status: Acute Diagnosis: Secondary DS: Summary Hospital Course: These are the medical issues addressed during this hospitalization: 87-year-old female with past medical history significant for atrial fibrillation (anticoagulated on aspirin), COPD, congestive heart failure, hypertension, hyperlipidemia and hypothyroidism since to the emergency department for the evaluation of shortness of breath, cough and nausea. Pt. brought via [facility] from her custodial facility and per report her oxygen saturation was in the 80s. Sepsis present on admission with leukocytosis and tachycardia source likely due to pneumonia and complex urinary tract infection. Pneumonia Chest x-ray significant for left basilar airspace disease with pleural fluid, personally reviewed -Completed azithromycin, infectious disease stopped ceftriaxone and transition to Invanz IV due to Enterobacter MDRO noted on the urine culture. -Blood cultures negative so far -Legionella/pneumococcal urinary antigens negative COPD, chronic with no active exacerbation Duonebs were given during the hospitalization Urinary tract infection complex -prehospital due to previous indwelling Thornton catheter UA consistent with UTI Chronic indwelling catheter. -UC MDRO sens. noted-Enterobacter cloacae, Burkholderia, MDRO -Appreciate infectious disease recommendations -change thornton catheter. Infectious disease currently following and has started on IV Invanz. Final urine cultures show Alicia. Will initiate Diflucan for 3 days per IDs recommendation. Chronic urinary retention reviewed med records from SNF, chronic thornton, on Pyridium, Methenamine, and Flomax -Thornton changed out. Atrial fibrillationcurrently rate controlled. -Continue home amiodarone and metoprolol -Not on systemic anticoagulation-continue ASA Hypertension/hyperlipidemia/hypothyroidism -Continue home medications Leukocytosis -Improving Patient has gained maximum benefit from hospitalization and ready to be transitioned to custodial facility. - Time Spent with Patient Total time spent providing and/or coordinating discharge services: Less than 30 minutes Exam Vital signs: Vital Signs 06/11/18 10:40 06/11/18 12:00 06/11/18 16:00 Temperature 97.6 F 97.8 F Pulse Rate 77 80 Respiratory Rate 20 20 Blood Pressure 170/74 H 145/82 H Pulse Oximetry 99 98 97 06/11/18 17:40 06/11/18 20:00 06/12/18 00:00 Temperature 97.6 F 97.7 F Pulse Rate 80 81 Respiratory Rate 22 20 Blood Pressure 156/72 H 151/67 H Pulse Oximetry 97 97 98 06/12/18 04:00 06/12/18 08:00 Temperature 97.5 F L 97.4 F L Pulse Rate 74 97 H Respiratory Rate 20 18 Blood Pressure 107/78 189/79 H Pulse Oximetry 97 98 Intake & Output 06/11/18 06/12/18 06/12/18 18:59 06:59 18:59 Intake Total 880 / 880 340 / 340 Output Total 1350 / 1350 Balance -470 / -470 340 / 340 Intake: IV 100 / 100 INVanz Inj 1,000 MG In NS Inj 100 / 100 100 ML @ 200 mls/hr IV.SIG Q24H [facility] Rx#:[id number] Oral 300 / 300 340 / 340 Oral Supplement 480 / 480 Output: Urine 1350 / 1350 Other: # Voids 2 Date of Last Bowel Movement 06/11/18 # Bowel Movements 2 1 Narrative: Gen.: No acute distress Head: Normocephalic. Atraumatic. Cardiovascular: Irregular rate and rhythm. No murmurs, rubs or gallops. Respiratory: Relatively clear to auscultation bilaterally Abdomen: Soft, nontender, nondistended. Normoactive bowel sounds GUFoley in place Musculoskeletal: No gross deformities. No edema. Neuro: Sensory and motor grossly intact. Cranial nerves II through XII grossly intact. Alert oriented person and place Results Procedures completed during hospitalization: none - Impressions ITS Impressions Chest X-Ray 06/05/18 22:17 CONCLUSION: Left basilar airspace disease with pleural fluid. Presumed esophageal stent. Tortuous aorta. Trace right pleural fluid. Abdomen/Pelvis CT 06/07/18 00:00 CONCLUSION: 1. Cardiomegaly with bibasilar consolidation and small pleural effusions. 2. Small amount of abdominal ascites. 3. Cholelithiasis. Chest CT 06/07/18 00:00 CONCLUSION: 1. Cardiomegaly with bibasilar consolidation and small pleural effusions. 2. Scattered parenchymal densities in the upper lobes could be infectious or inflammatory. Discharge Plan - Discharge Disposition Patient Disposition: 03 Discharge to SNF - Discharge Condition Condition: Serious - Discharge Order Discharge Orders: Discharge Order (Routine); Ordered 06/12/18 Ordered By: Sheela Gay - Discharge Details Anticipated Discharge Date: 06/12/18 - Physicians Team Primary Care Provider: Georgi Wayne Attending Provider: Sheela Gay [facility] Providers: [facility] ; Ronaldo Dalal MD
== END 2018-06-12 12:55 ==
LOC: NEPE 22:10 → NEDA 06-06 01:34 → NEDH 06-06 04:30 → N07 06-06 08:13
PROVIDERS: ADMIT Family Medicine; ATTEND Family Medicine